=== PATIENT | female | born 1965 | race Caucasian/White ===

== ENCOUNTER → 2020-06-11 | Outpatient (CLI) | payer OTHER ==
[~2020-06-11] MED LIST: ASPIRIN CHEWABL81 MG PO; VITAMIN B-122500 MCG PO; VITAMIN D31000 UNI1 PO; ZIAC 2.5-6.251 EACH PO
== END ==
LOC: KOH-I 11:40
DX: M79.672 Pain in left foot (principal)
CPT/HCPCS: 73630